=== PATIENT | male | born 1990 | race Caucasian/White ===

== ENCOUNTER 2016-12-25 18:45 | Emergency (ER) | payer MEDICAID ==
[2016-12-25 19:03] VITALS: BP 124/74
[2016-12-25] MEDS ORDERED: NS 0.9% 1000 ML* 1,000 ML BOLUS ONE (19:14)
[2016-12-25] MEDS ORDERED: Ondansetron INJ* 2 MG/ML VIAL IV ONE (19:15)
--- NOTE | 2016-12-25 19:40 | UC ---
Abdominal Pain Male HPI - HPI Summary HPI Summary: 26 yo male with the onset of ELQ abd pain today pain waxes and wanes nausea anorexia diarrhea x 3 no f/c no UTI symptoms feels faint and dizzy At [facility] x 6 weeks - History of Current Complaint Chief Complaint: UCDizziness Stated Complaint: DIZZY,ABD PAIN Time Seen by Provider: 12/25/16 19:07 Onset/Duration: Gradual Onset, Lasting Hours Timing: Constant Severity Initially: Moderate Severity Currently: Moderate Pain Intensity: 6 Pain Scale Used: 0-10 Numeric Location: Discrete At: RLQ Radiates: No Character: Cramping Aggravating Factor(s): Movement Associated Signs And Symptoms: Positive: Decreased Appetite, Nausea, Diarrhea - Allergies/Home Medications Allergies/Adverse Reactions: Allergies Allergy/AdvReac Type Severity Reaction Status Date / Time Pseudoephedrine AdvReac Intermediate urinary Verified 12/25/16 18:51 [From Sudafed] retetion Home Medications: Home Medications Aripiprazole 15 mg PO 12/25/16 [History] Buprenorphine/Naloxone SL TAB* [Suboxone 8-2 mg SL TAB*] 1 tab SL 12/25/16 [ History] Gabapentin CAP(*) [Neurontin 300 CAP(*)] 300 mg PO BID 12/25/16 [History Confirmed 12/25/16] Ibuprofen TAB* [Motrin TAB* 600 MG] 600 mg PO Q6H PRN 12/25/16 [History Confirmed 12/25/16] PMH/Surg Hx/FS Hx/Imm Hx Previously Healthy: Yes - Surgical History Surgical History: Yes Surgery Procedure, Year, and Place: 2X SINUSITIS TO RMOVE POLYPS. L shoulder repair 2008 - Family History Known Family History: Positive: Hypertension - Social History Alcohol Use: None Substance Use Type: None Smoking Status (MU): Former Smoker Review of Systems Constitutional: Negative Skin: Negative Eyes: Negative ENT: Negative Respiratory: Negative Cardiovascular: Negative Gastrointestinal: Abdominal Pain, Diarrhea, Nausea Genitourinary: Negative Motor: Negative Neurovascular: Negative Musculoskeletal: Negative Neurological: Negative Psychological: Negative Is Patient Immunocompromised?: No All Other Systems Reviewed And Are Negative: Yes Physical Exam Triage Information Reviewed: Yes Appearance: Well-Appearing, No Pain Distress, Well-Nourished Vital Signs: Initial Vital Signs Temp 98.7 F 12/25/16 18:56 Pulse 76 12/25/16 18:56 Resp 16 12/25/16 18:56 BP 124/74 12/25/16 18:56 Pulse Ox 96 12/25/16 18:56 Vital Signs Reviewed: Yes Eyes: Positive: Conjunctiva Clear ENT: Negative: Hearing grossly normal, Nasal congestion, Nasal drainage, TMs normal, Tonsillar exudate, Trismus, Muffled/hoarse voice Neck: Positive: Supple, Nontender, No Lymphadenopathy Respiratory: Positive: Lungs clear, Normal breath sounds, No respiratory distress, No accessory muscle use Cardiovascular: Positive: RRR, No Murmur Abdomen Description: Positive: Soft, McBurney's Point Tenderness - (+++). Negative: CVA Tenderness (R), CVA Tenderness (L) Bowel Sounds: Positive: Present Musculoskeletal: Positive: ROM Intact, No Edema Neurological: Positive: Alert Psychological Exam: Normal Skin Exam: Normal Abd Pain Male Course/Dx - Course Course Of Treatment: D/W Dr. Tarango. to [facility] ER via EMS - Differential Dx/Clinical Impression Provider Diagnoses: abdominal pain RLQ- of uncertain cause Discharge - Discharge Plan Condition: Stable Disposition: [facility]
== END 2016-12-25 19:53 | disposition short-term general hospital (02) ==
LOC: UCEAST 18:45
DX: R10.31 Right lower quadrant pain (principal); R11.0 Nausea; F50.89 Other specified eating disorder; R19.7 Diarrhea, unspecified; Z88.8 Allergy status to other drugs, medicaments and biological substances; Z87.891 Personal history of nicotine dependence
CPT/HCPCS: 96374; 99203; G0463; J2405

== ENCOUNTER 2016-12-25 20:04 | Observation (INO) | payer MEDICAID, OTHER ==
[2016-12-25] MEDS ORDERED: NS 0.9% 1000 ML* 1,000 ML IV ONE (20:16)
[2016-12-25 20:40] LABS: Hematocrit 38 % (42-52); Hemoglobin 12.6 g/dl (14.0-18.0); Mean Corpuscular HGB Conc 33 g/dl (31-36); Mean Corpuscular Hemoglobin 29 pg (27-31); Mean Corpuscular Volume 86 fL (80-94); Mean Platelet Volume 8 um3 (7.4-10.4); Red Blood Count 4.41 10^6/ul (4.0-5.4); Red Cell Distribution Width 15 % (10.5-15); White Blood Count 5.1 10^3/ul (3.5-10.8)
[2016-12-25] MEDS ORDERED: Ketorolac INJ* 30 MG/ML 1 ML VIAL IV PUSH ONE (20:52)
[2016-12-25 21:00] LABS: ALT 96 U/L (7-52); AST 79 U/L (13-39); Albumin 3.8 g/dL (3.2-5.2); Alkaline Phosphatase 68 U/L (34-104); Anion Gap 4 mmol/L (2-11); BUN/Creatinine Ratio 13.5 (8-20); Blood Urea Nitrogen 12 mg/dL (6-24); CO2 Carbon Dioxide 27 mmol/L (22-32); Calcium 8.4 mg/dL (8.6-10.3); Chloride 106 mmol/L (101-111); EGFR African American 131.9 (>60); EGFR Non-African American 102.5 (>60); Globulin 2.5 g/dL (2-4); Glucose 91 mg/dL (70-100); Lipase < 10 U/L (11.0-82.0); Sodium 137 mmol/L (133-145); Total Protein 6.3 g/dL (6.4-8.9)
[2016-12-25 21:11] LABS: Urine Bilirubin Negative (Negative); Urine Glucose Negative (Negative); Urine Nitrite Negative (Negative)
--- NOTE | 2016-12-25 21:33 | ED ---
Abdominal Pain/Male - HPI Summary HPI Summary: 26M presents with RLQ today. He states the pain developed first this morning starting it occurred after eating. He states he has only been able to eat breakfast. He states his pain is worst with movement. He denies any dysuria, hematuira, flank pain, frequency, urgency. He admits to nausea but denies any vomiting. He admits to lightheadedness He admits to lightheadedness that is worst when changes position. he denies any chest pain or SOB. He denies any fever. He took advil for his pain which helped. No previous abdominal surgeries. He is currently at [facility]. He states he has had this pain before when he was younger and seemed to have a mild appendicitis that resolved with what he states as a blood thinner. - History of Current Complaint Chief Complaint: EDAbdPain Stated Complaint: ABD PAIN Time Seen by Provider: 12/25/16 20:14 Pain Intensity: 6 - Allergies/Home Medications Allergies/Adverse Reactions: Allergies Allergy/AdvReac Type Severity Reaction Status Date / Time Pseudoephedrine AdvReac Intermediate urinary Verified 12/25/16 18:51 [From Jeermyafemartine] retetion PMH/Surg Hx/FS Hx/Imm Hx Endocrine/Hematology History: Denies: Hx Anticoagulant Therapy Cardiovascular History: Denies: Hx Hypertension - Surgical History Surgery Procedure, Year, and Place: 2X SINUSITIS TO RMOVE POLYPS. L shoulder repair 2008 - Immunization History Immunizations Up to Date: Yes Infectious Disease History: No Infectious Disease History: Denies: Traveled Outside the [place] in Last 30 Days - Family History Known Family History: Positive: Hypertension - Social History Alcohol Use: None Substance Use Type: Reports: None Smoking Status (MU): Former Smoker Review of Systems Negative: Fever Negative: Chest Pain Negative: Shortness Of Breath Positive: Abdominal Pain, Nausea. Negative: Vomiting, Diarrhea All Other Systems Reviewed And Are Negative: Yes Physical Exam Triage Information Reviewed: Yes Vital Signs On Initial Exam: Initial Vitals Temp Pulse Resp BP Pulse Ox 98.1 F 66 16 116/70 96 12/25/16 20:09 12/25/16 20:09 12/25/16 20:09 12/25/16 20:09 12/25/16 20:09 Vital Signs Reviewed: Yes Appearance: Positive: Well-Appearing Skin: Positive: Warm, Dry Head/Face: Positive: Normal Head/Face Inspection Eyes: Positive: Normal, EOMI, JORG EA, Conjunctiva Clear ENT: Positive: Normal ENT inspection, Pharynx normal, TMs normal Respiratory/Lung Sounds: Positive: Clear to Auscultation, Breath Sounds Present Cardiovascular: Positive: Normal, RRR Abdomen Description: Positive: Soft, Other: - tenderness in RLQ, no rebound, neg rosvings, Bowel Sounds: Positive: Present - Neal Coma Scale Coma Scale Total: 15 Diagnostics - Vital Signs Vital Signs Temp Pulse Resp BP Pulse Ox 12/25/16 21:00 63 123/72 97 12/25/16 20:10 67 96 12/25/16 20:09 98.1 F 66 16 116/70 96 - Laboratory Lab Results: Lab Results 12/25/16 12/25/16 12/25/16 Range/Units 20:32 20:32 21:00 WBC 5.1 (3.5-10.8) 10^3/ul RBC 4.41 (4.0-5.4) 10^6/ul Hgb 12.6 L (14.0-18.0) g/dl Hct 38 L (42-52) % MCV 86 (80-94) fL MCH 29 (27-31) pg MCHC 33 (31-36) g/dl RDW 15 (10.5-15) % Plt Count 202 (150-450) 10^3/ul MPV 8 (7.4-10.4) um3 Neut % (Auto) 46.3 (38-83) % Lymph % (Auto) 41.2 (25-47) % [place] % (Auto) 9.8 H (1-9) % Eos % (Auto) 2.1 (0-6) % Baso % (Auto) 0.6 (0-2) % Absolute Neuts (auto) 2.4 (1.5-7.7) 10^3/ul Absolute Lymphs (auto) 2.1 (1.0-4.8) 10^3/ul Absolute Monos (auto) 0.5 (0-0.8) 10^3/ul Absolute Eos (auto) 0.1 (0-0.6) 10^3/ul Absolute Basos (auto) 0 (0-0.2) 10^3/ul Absolute Nucleated RBC 0.01 10^3/ul Nucleated RBC % 0.2 Sodium 137 (133-145) mmol/L Potassium 4.0 (3.5-5.0) mmol/L Chloride 106 (101-111) mmol/L Carbon Dioxide 27 (22-32) mmol/L Anion Gap 4 (2-11) mmol/L BUN 12 (6-24) mg/dL Creatinine 0.89 (0.67-1.17) mg/dL Est GFR ( Amer) 131.9 (>60) Est GFR (Non-Af Amer) 102.5 (>60) BUN/Creatinine Ratio 13.5 (8-20) Glucose 91 (70-100) mg/dL Calcium 8.4 L (8.6-10.3) mg/dL Total Bilirubin 0.40 (0.2-1.0) mg/dL AST 79 H (13-39) U/L ALT 96 H (7-52) U/L Alkaline Phosphatase 68 (34-104) U/L C-React Prot High Sens 1.13 mg/L Total Protein 6.3 L (6.4-8.9) g/dL Albumin 3.8 (3.2-5.2) g/dL Globulin 2.5 (2-4) g/dL Albumin/Globulin Ratio 1.5 (1-3) Lipase < 10 L (11.0-82.0) U/L Urine Color Yellow Urine Appearance Clear Urine pH 5.0 (5-9) Ur Specific [place] 1.021 (1.010-1.030) Urine Protein Negative (Negative) Urine Ketones Trace H (Negative) Urine Blood Negative (Negative) Urine Nitrate Negative (Negative) Urine Bilirubin Negative (Negative) Urine Urobilinogen Negative (Negative) Ur Leukocyte Esterase Negative (Negative) Urine Glucose Negative (Negative) Result Diagrams: 12/25/16 20:32 12/25/16 20:32 Lab Statement: Any lab studies that have been ordered have been reviewed, and results considered in the medical decision making process. - CT abd CT Interpretation: Positive (See Comments) - appendix is mildly distended measureing 8mm. there is some faint straining in adjacent fat. impression: early or mild appendicitis CT Interpretation Completed By: Radiologist Re-Evaluation - Re-Evaluation First Eval Re-Evaluation Time: 23:54 Change: Improved Comment: still pain in RLQ, Abdominal Pain Fem Course/Dx - Course Course Of Treatment: 26M presents with RLQ today. He states the pain developed first this morning. He states he has only been able to eat breakfast. He states his pain is worst with movement. He denies any dysuria, hematuira, flank pain, frequency, urgency. He admits to nausea but denies any vomiting. He admits to lightheadedness that is worst when changes position. he denies any chest pain or SOB. He denies any fever. He took advil for his pain which helped. He has never had this pain before. No previous abdominal surgeries. on exam tender in RLQ, no rebound. labs normal wbc and crp. CT shows early appendicitis. discussed results with dr shrestha and was not too impressed with story. either have come back if pain increases or repeat labs [address] batres who evaulated patient and states feels that should be admitted as symptoms seems to be consistent with appendicitis so talked with dr shrestha who agrees to admission. - Diagnoses Differential Diagnosis/HQI/PQRI: Appendicitis, Urinary Tract Infection, Other - gastroenteritis Provider Diagnoses: Abdominal pain, appendicitis, early - Provider Notifications Discussed Care Of Patient With: dr shrestha Time Discussed With Above Provider: 00:02 - would not take to OR at this time, can send home and have come back or repeat labs Discharge - Discharge Plan Condition: Stable Disposition: ADMITTED TO [facility] Referrals: MERARI Valdes [Primary Care Provider] -
[2016-12-25] MEDS ORDERED: Iohexol 300* (CONTRAST) 10 ML SDV IV ONE (22:50)
[2016-12-26] MEDS ORDERED: Heparin DRIP 25,000 UNITS(*) 25,000 UNITS/500 ML BAG IVPB SCH (00:20)
[2016-12-26] MEDS ORDERED: Acetaminophen TAB* 325 MG PO ONE (00:54)
[2016-12-26] MEDS ORDERED: Heparin VIAL(*) 5000 UNITS/ML VIAL (FIVE THOUSAND) IV SCH (01:00)
[2016-12-26] MEDS ORDERED: NS 0.9% 1000 ML* 1,000 ML IV SCH (01:15)
[2016-12-26 06:25] LABS: Hematocrit 36 % (42-52); Hemoglobin 12.2 g/dl (14.0-18.0); Mean Corpuscular HGB Conc 34 g/dl (31-36); Mean Corpuscular Hemoglobin 29 pg (27-31); Mean Corpuscular Volume 87 fL (80-94); Mean Platelet Volume 8 um3 (7.4-10.4); Red Blood Count 4.18 10^6/ul (4.0-5.4); Red Cell Distribution Width 15 % (10.5-15); White Blood Count 3.6 10^3/ul (3.5-10.8)
[2016-12-26] MEDS: Ketorolac INJ* 30 MG/ML 1 ML VIAL IV PUSH PRN ×2 (06:34→13:22)
[2016-12-26] MEDS ORDERED: Buprenorphine/Naloxone 8-2 MG SL TAB* 1 TAB PO ONE (07:00)
--- NOTE | 2016-12-26 07:55 | RAD ---
CLINICAL HISTORY: Right lower quadrant pain COMPARISON: None TECHNIQUE: Multiple contiguous axial CT scans were obtained of the abdomen and pelvis after the administration of intravenous contrast. Coronal and sagittal multiplanar reformations are submitted for review. FINDINGS: LUNG BASES: The lung bases are clear. LIVER: The liver is normal in shape, size, contour, and attenuation. BILE DUCTS: There is no intrahepatic or extrahepatic biliary dilatation. GALLBLADDER: The gallbladder is normal, without pericholecystic inflammatory change. PANCREAS: The pancreas is normal, without mass or ductal dilatation. SPLEEN: Normal in size and appearance. UPPER GI TRACT: Evaluation of the gastrointestinal tract is limited by incomplete gastric distention. The upper GI tract is unremarkable. SMALL BOWEL AND MESENTERY: The small bowel is normal in contour, course, and caliber. There is no obstruction or dilatation. COLON: The colon is normal in contour, course, caliber. There is no pericolonic inflammatory change. There is large amount stool within the colon. There is a tubular, vermiform, hollow viscus that is blind ending, and originates from the cecum, consistent with the appendix. This is best seen on coronal images 57 through 64. The appendix is retrocecal. The appendix is mildly dilated at the base measuring up to 0.8 cm. There is minimal stranding of the periappendiceal fat.. ADRENALS: Normal bilaterally. KIDNEYS: The kidneys are normal in shape, size, contour, and axis. There is no hydronephrosis or nephrolithiasis. BLADDER: The bladder is smooth in contour. PELVIC ORGANS: The prostate gland is normal. The seminal vesicles are symmetric. AORTA: The aorta is normal. IVC: Unremarkable LYMPH NODES: There are multiple subcentimeter short axis lymph nodes along the small bowel mesentery, without lymphadenopathy by size criteria. ABDOMINAL WALL: There is no evidence for abdominal wall hernia. BONES AND SOFT TISSUES: Unremarkable OTHER: None IMPRESSION: QUESTIONABLE EARLY APPENDICITIS. RETROCECAL APPENDIX.
[2016-12-26] MEDS ORDERED: Nicotine Inhaler* 10 MG AMP INH PRN (08:04)
--- NOTE | 2016-12-26 08:04 | HP ---
H&P (Free Text) History and Physical: CC: abdominal pain HPI: 26 yo M presented to the [employer] to [facility] then was sent to the ED with 1.5 days of abdominal pain that started periumbilically. The next morning he ate breakfast but after that had anorexia and nausea. He notes the pain has migrated to the RLQ and is exacerbated by movement/walking. He denies F/C. He has had some diarrhea. He has had no similar pain in the past. PMH: Depression, narcotic addiction PSH: sinus surgery x 2; Left rotator cuff surgery 2008 Meds: All: pseudoephedrine SH: at [employer] [facility]; single; tobacco user; previously worked in retail. FH: mother had stroke age 43 "blood clot" ROS: 14 point review completed and significant for above +/-, otherwise negative. PE: Vital Signs Temp 97.8 F 12/26/16 07:29 Pulse 54 12/26/16 07:29 Resp 17 12/26/16 07:29 BP 109/47 12/26/16 07:29 Pulse Ox 97 12/26/16 07:29 Gen: WDWN; resting in bed; NAD HEENT: NCAT; no otorhinorrhea; MMM Neck: symmetrical; trachea M/Ll; no MARY Lungs: CTA B, no W/R/R Heart: reg s1s2, no M/R/G Abd: ND, soft, +BS; tender in RLQ to mod/deep palpation; no guarding/rebound; no Rovsing sx Ext: warm Laboratory Results - last 24 hr 12/25/16 12/25/16 12/25/16 20:32 20:32 21:00 WBC 5.1 RBC 4.41 Hgb 12.6 L Hct 38 L MCV 86 MCH 29 MCHC 33 RDW 15 Plt Count 202 MPV 8 Neut % (Auto) 46.3 Lymph % (Auto) 41.2 [place] % (Auto) 9.8 H Eos % (Auto) 2.1 Baso % (Auto) 0.6 Absolute Neuts (auto) 2.4 Absolute Lymphs (auto) 2.1 Absolute Monos (auto) 0.5 Absolute Eos (auto) 0.1 Absolute Basos (auto) 0 Absolute Nucleated RBC 0.01 Nucleated RBC % 0.2 Sodium 137 Potassium 4.0 Chloride 106 Carbon Dioxide 27 Anion Gap 4 BUN 12 Creatinine 0.89 Est GFR ( Amer) 131.9 Est GFR (Non-Af Amer) 102.5 BUN/Creatinine Ratio 13.5 Glucose 91 Calcium 8.4 L Total Bilirubin 0.40 AST 79 H ALT 96 H Alkaline Phosphatase 68 C-React Prot High Sens 1.13 Total Protein 6.3 L Albumin 3.8 Globulin 2.5 Albumin/Globulin Ratio 1.5 Lipase < 10 L Urine Color Yellow Urine Appearance Clear Urine pH 5.0 Ur Specific [place] 1.021 Urine Protein Negative Urine Ketones Trace H Urine Blood Negative Urine Nitrate Negative Urine Bilirubin Negative Urine Urobilinogen Negative Ur Leukocyte Esterase Negative Urine Glucose Negative 12/26/16 12/26/16 06:06 06:06 WBC 3.6 RBC 4.18 Hgb 12.2 L Hct 36 L MCV 87 MCH 29 MCHC 34 RDW 15 Plt Count 181 MPV 8 Neut % (Auto) 42.5 Lymph % (Auto) 44.3 [place] % (Auto) 10.3 H Eos % (Auto) 2.4 Baso % (Auto) 0.5 Absolute Neuts (auto) 1.6 Absolute Lymphs (auto) 1.6 Absolute Monos (auto) 0.4 Absolute Eos (auto) 0.1 Absolute Basos (auto) 0 Absolute Nucleated RBC 0 Nucleated RBC % 0 Sodium Potassium Chloride Carbon Dioxide Anion Gap BUN 11 Creatinine Est GFR ( Amer) Est GFR (Non-Af Amer) BUN/Creatinine Ratio Glucose Calcium Total Bilirubin AST ALT Alkaline Phosphatase C-React Prot High Sens Total Protein Albumin Globulin Albumin/Globulin Ratio Lipase Urine Color Urine Appearance Urine pH Ur Specific [place] Urine Protein Urine Ketones Urine Blood Urine Nitrate Urine Bilirubin Urine Urobilinogen Ur Leukocyte Esterase Urine Glucose CT abd/pelvis: retrocecal appendix with periappendiceal fat stranding A: 26 yo M with early acute appendicitis in a retrocecal position. P: Findings discussed with the patient. I recommend laparoscopic appendectomy. I explained the procedure, indications, risks, benefits, alternatives, and option of no treatment. Risks explained including, not limited to, bleeding, infection, pain, scarring, blood clots, pneumonia, N/V, open surgery, and the risks of GETA. I discussed avoidance of narcotics given his history. The patient had an opportunity to ask questions, all questions answered, and he agrees to proceed. I have discussed that Dr. Barber may do his surgery due to timing and OR availability and he agrees.
[2016-12-26] MEDS ORDERED: Ondansetron INJ* 2 MG/ML VIAL IV PRN (08:06)
[2016-12-26] MEDS ORDERED: ceFOXitin 2 GM IVPREMIX* 2 GM/50 ML BAG IVPB SCH (09:00)
[2016-12-26] MEDS ORDERED: Mouth Piece, Nicotine* 1 EACH CARTRIDGE INH ONE (09:00)
[2016-12-26] MEDS ORDERED: Bupivacaine 0.5% SDV PF* 30 ML VIAL ONE ×2 (11:16)
[2016-12-26] MEDS ORDERED: Sodium Citrate/Citric Acid* 15 ML UDC ONE ×2 (11:27)
[2016-12-26] MEDS ORDERED: fentaNYL* 50 MCG/ML 2 ML VIAL (100 MCG VIAL) ONE ×2 (11:58)
[2016-12-26] MEDS ORDERED: Midazolam* 1 MG/ML 2 ML VIAL (2 MG) ONE ×2 (11:58)
[2016-12-26] MEDS ORDERED: Lidocaine 2% PF * 5 ML VIAL ONE ×2 (12:02)
[2016-12-26] MEDS ORDERED: Propofol* 10 MG/ML 20 ML BTL IV PUSH ONE ×2 (12:02)
[2016-12-26] MEDS ORDERED: Succinylcholine* 20 MG/ML 10 ML VIAL ONE ×2 (12:02)
[2016-12-26] MEDS ORDERED: Cisatracurium* 2 MG/ML MDV 5 ML ONE ×2 (12:03)
[2016-12-26] MEDS ORDERED: Glycopyrrolate IV* 0.2 MG/ML 1 ML VIAL ONE ×2 (12:37)
[2016-12-26] MEDS ORDERED: Neostigmine Methylsulfate* 2 MG/2 ML SYRINGE ONE ×2 (12:37)
[2016-12-26] MEDS ORDERED: DiMENhydriNATE IV* 50 MG/ML VIAL IV PUSH PRN (13:18)
[2016-12-26] MEDS ORDERED: Ketorolac INJ* 30 MG/ML 1 ML VIAL ONE ×2 (13:21)
[2016-12-26] MEDS ORDERED: Ibuprofen TAB* 600 MG PO PRN (13:25)
[2016-12-26] MEDS ORDERED: Acetaminophen TAB* 325 MG PO PRN (13:25)
--- NOTE | 2016-12-26 13:25 | SURGPN ---
Brief Operative Note - Surgery Procedures: PREOP/POSTOP DX: ACUTE APPENDICITIS PROC: LAP APPENDECTOMY SURG: MECENAS ANES: ASHELY; LIDIA EBL: MIN IVF: 700ML LR SPEC: APPENDIX DRAIN/COMPL: NONE COND: STABLE; TO RR EXTUBATED. FINDINGS: EARLY ACUTE APPENDICITIS
[2016-12-26 14:48] VITALS: BP 149/72
--- NOTE | 2016-12-27 00:32 | OP ---
DATE OF OPERATION: 12/26/16 - ROOM #341 DATE OF : 88 SURGEON: Dr. Pan. PHOTOFINISHING LABORATORY WORKER: None. ANESTHESIOLOGIST: Demario Shepherd DO ANESTHESIA: General endotracheal. PRE-OP DIAGNOSIS: Acute appendicitis. POST-OP DIAGNOSIS: Acute appendicitis. OPERATIVE PROCEDURE: Laparoscopic appendectomy. ESTIMATED BLOOD LOSS: Minimal. IV FLUIDS: 700 mL crystalloids. SPECIMENS: Appendix. DRAINS: None. COMPLICATIONS: None. COUNTS: Instrument, needle, and sponge counts were correct. DESCRIPTION OF PROCEDURE: The patient was brought to the operating room, placed on the table supine. Sequential compression devices were placed on both lower extremities. General anesthesia was administered. He received appropriate intravenous antibiotics and a time-out was performed. Local anesthetic was infiltrated to the skin and soft tissue prior to making each incision. Entry to the abdomen was through a transumbilical vertical incision using an open technique. After accessing the peritoneal cavity, a 12- mm trocar was placed and carbon-dioxide insufflated to a pressure of 15 mmHg. Under direct visualization, 5 mm trocars were placed in the suprapubic midline and left lower quadrant. The cecum was identified, the right lower quadrant appeared normal. In the retrocecal position, the appendix was identified. The distal one half appeared normal, proximal one half appeared to be inflamed, but there was no suppuration. The appendix was elevated, window created in the mesentry of the appendix at the base and then the appendix was divided at the base using the Endo PRANEETH stapler with a mitchell cartridge. The mesentery of the appendix was then divided with two firings of the Endo PRANEETH stapler with orozco cartridge. The appendix was retrieved through the 12-mm port site. Inspection revealed that the staple lines were intact and hemostasis was assured. Ports were removed under direct visualization, the carbon- dioxide was released. Umbilicus was closed with 0 Polysorb in a [id number] fashion to approximate the fascia. Skin incisions were closed with 4-0 Monocryl in a subcuticular fashion. DermaFlex was applied to the sites. The patient tolerated the procedure well. He was extubated and transferred to recovery room in stable condition. [id number]/[facility] #: [id number] [facility]ITAL[facility]
--- NOTE | 2017-01-02 03:23 | DS ---
DISCHARGE SUMMARY: DATE OF ADMISSION: 12/25/16 DATE OF DISCHARGE: 12/26/16 DISCHARGE DIAGNOSES: 1. Acute appendicitis. 2. Substance abuses. 3. Depression. OPERATIVE PROCEDURES: Laparoscopic appendectomy, which was done on 12/26/16. HOSPITAL COURSE: This is a 26-year-old male, who presented to [facility] Emergency Room. He was a patient of the [facility], who was seen and evaluated in the emergency room because of abdominal pain migrating to the right lower quadrant and he was diagnosed with appendicitis. He was admitted to the surgical service and he was taken to the operating room for laparoscopic appendectomy. Please refer to the history and physical as well as the operative report for the details. Postoperatively, the patient progressed well. He was discharged from the recovery room and for pain, he was recommended to take Tylenol or ibuprofen only. Final pathology on the appendix revealed early acute suppurative appendicitis. No additional tests are pending. [id number]/[facility] #: [id number] MTDWei
== END 2016-12-26 15:18 ==
LOC: ED 20:04 → SSU 12-26 00:11 → INTOOBSV 12-26 00:11
PROVIDERS: ADMIT Surgery; ATTEND Surgery
PROC: 0DTJ4ZZ Resection of Appendix, Percutaneous Endoscopic Approach (ICD-10-PCS; principal; 2016-12-26 13:45)
DX: K35.80 Unspecified acute appendicitis (principal); Z87.891 Personal history of nicotine dependence
CPT/HCPCS: 36415; 74177; 80053; 81003; 83690; 84520; 85025; 86141; 88304; 96374; 96375; 99284; A9270-GY; C1776; G0378; J0330; J0694; J1885; J2250; J2405; J2704; J3010; Q9967